=== PATIENT | female | born 1995 | race Caucasian/White ===

== ENCOUNTER → 2022-06-10 11:05 | Outpatient (CLI) | payer OTHER, SELFPAY ==
--- NOTE | 2022-06-10 | DI.US.S_ITS ---
PROCEDURE: US OB >= 14 WEEKS FETUS INDICATIONS: 20 WEEK ANATOMY SCAN OUTSIDE/PRIOR DATING DATA: Last menstrual period (LMP): 01/21/2022 LMP-based estimated date of delivery (CHERYL): 10/28/2022 First dating scan (date and location): 06/10/2022 Estimated date of delivery (CHERYL) from first dating scan: 10/29/2022 TECHNIQUE: Real-time scanning was performed of the fetus, with image documentation and biometric measurements. Endovaginal scanning: Not performed COMPARISON: None. FINDINGS: General: A single living intrauterine gestation is present. Presentation: Breech Placenta: Anterior, without previa. The cord insertion is about 2-3 centimeters from the edge. Amniotic fluid index: 12.6 centimeters heart rate: 135 beats per minute Maternal cervical canal: 3.6 centimeters biometrics: Biparietal diameter: 4.6 centimeters Head circumference: 17.1 centimeters Abdominal circumference: 15 centimeters Femur length: 3.1 centimeters Composite gestational age from present scan: 19 weeks and 6 days Estimated weight and percentile: 318 grams, 38th percentile Anatomic survey: Neuro: Ventricles are non-dilated at less than 10 mm. Cisterna magna is normal at 3-11 mm. Cerebellum is normal in size and morphology. Nuchal skin fold: Normal at less than 6 mm between 14-21 weeks gestational age. Face: Nose and lips, facial profile are normal. Spine: Skin line not well seen Heart: 4-chambered heart is present, with normal ventricular outflow tracts. Diaphragm: Diaphragm is intact. Stomach: Left-sided stomach is present. Kidneys: No definite hydronephrosis, not well seen Cord: Cord insertions is about 2-3 centimeters from the edge of the placenta. Bladder: Normal in size. Extremities: All 4 extremities identified. Feet are not well seen. IMPRESSION: Living intrauterine gestation at 19 weeks and 6 days, with concordant biometry today. EFW at the 38th percentile. Placental cord insertion is approximately 2-3 centimeters from the edge. Kidneys are not well seen. Feet are not well seen. Skin line of the spine is suboptimally seen. These could be followed on subsequent imaging. We strive to produce accurate, complete, and clear reports of imaging services. To assist us in improving patient care, this report was composed using standard report templates and voice recognition software. Therefore, it may contain abnormal punctuation, insertions and/or omissions. Occasional wrong-word or sound-alike substitutions may occur. Though we review the report and make efforts to correct it, we do recommend that the report be read carefully in proper context to recognize any text inaccuracies. Dictated by: Ashish Neves M.D. on 06/10/2022 at 19:18 Approved by: Ashish Neves M.D. on 06/10/2022 at 19:24
== END ==
PROVIDERS: Referring Provider Nurse Practitioner Obstetrics & Gynecology; Visit Provider Nurse Practitioner Obstetrics & Gynecology
DX: Z34.92 Encounter for supervision of normal pregnancy, unspecified, second trimester (principal); Z3A.19 19 weeks gestation of pregnancy
CPT/HCPCS: 76811

== ENCOUNTER → 2022-06-21 15:56 | Outpatient (CLI) | payer OTHER, SELFPAY ==
--- NOTE | 2022-06-21 | DI.US.S_ITS ---
PROCEDURE: US OB FOLLOW UP INDICATIONS: FOLLOW UP ANATOMY OUTSIDE/PRIOR DATING DATA: Last menstrual period (LMP): 01/21/2022 LMP-based estimated date of delivery (CHERYL): 10/28/2022 First dating scan (date and location): 06/10/2022. Estimated date of delivery (CHERYL) from first dating scan: 10/29/2022 The calculations are made using the study generated CHERYL of 10/29/2022. TECHNIQUE: Real-time scanning was performed of the fetus, with image documentation. Endovaginal scanning: Not indicated COMPARISON: [facility], OB >= 14 WEEKS FETUS, 06/10/2022, 11:15. FINDINGS: A single living intrauterine gestation is present. Presentation: Vertex Placenta: Placental position is anterior, without previa. Amniotic fluid index: 15 cm, normal range is 5-24 cm. Single deepest vertical pocket is 4.4 cm. heart rate: 160 beats per minute. Maternal cervical canal: 4.0 cm long. Normal lower limit is 2.5 cm. Estimated gestational age from initial scan: 21 weeks, 3 days. spine, kidneys, placental cord insertion and bilateral feet are visualized and are within normal limits. IMPRESSION: 1. Single live intrauterine gestation with fetus in vertex presentation. heart rate is 160 beats per minute. Normal amount of amniotic fluid. 2. Normal placental cord insertion. Normal kidneys, bilateral feet and spine. Dictated by: Jerman Iyer M.D. on 06/21/2022 at 16:41 Approved by: Jerman Iyer M.D. on 06/21/2022 at 16:43
== END ==
PROVIDERS: Referring Provider Nurse Practitioner Obstetrics & Gynecology; Visit Provider Nurse Practitioner Obstetrics & Gynecology
DX: Z34.92 Encounter for supervision of normal pregnancy, unspecified, second trimester (principal); Z3A.22 22 weeks gestation of pregnancy
CPT/HCPCS: 76816

== ENCOUNTER → 2023-07-07 10:55 | Outpatient (CLI) | payer OTHER, SELFPAY ==
--- NOTE | 2023-07-07 10:57 | DI.RAD.S_ITS ---
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 COMPARISON: None. FINDINGS: Bones: No fractures or dislocations. No suspicious bony lesions. Soft tissues: No tibiotalar joint effusion. Achilles tendon appears normal. IMPRESSION: No evidence acute bony abnormality. Dictated by: Main Simpson M.D. on 07/07/2023 at 11:59 Approved by: Main Simpson M.D. on 07/07/2023 at 12:01
== END ==
PROVIDERS: Referring Provider Student in an Organized Health Care Education/Training Program; Visit Provider Student in an Organized Health Care Education/Training Program
DX: S93.601A Unspecified sprain of right foot, initial encounter (principal); M79.671 Pain in right foot; X58.XXXA Exposure to other specified factors, initial encounter
CPT/HCPCS: 73630

== ENCOUNTER → 2023-12-30 07:20 | Outpatient (CLI) | payer OTHER, SELFPAY | PROVIDERS: Visit Provider Physician Assistant Medical | DX: J03.90 Acute tonsillitis, unspecified (principal) | CPT/HCPCS: 87070 ==

== ENCOUNTER → 2024-10-31 09:16 | Outpatient (CLI) | payer OTHER, SELFPAY ==
[2024-10-31 10:13] LABS: Influenza A - CEPHEID Flu A POSITIVE (NEGATIVE); Influenza B - CEPHEID Flu B NEGATIVE (NEGATIVE); Respiratory Syncytial Virus Negative (Negative)
[2024-10-31 10:14] LABS: COVID-19 CEPHEID 4-PLEX PCR Negative (Negative)
== END ==
PROVIDERS: Referring Provider Physician Assistant; Visit Provider Physician Assistant
DX: J02.9 Acute pharyngitis, unspecified (principal); R05.1 Acute cough
CPT/HCPCS: 0241U; 87070

== ENCOUNTER 2025-04-21 19:00 | Emergency (ER) | payer OTHER, SELFPAY ==
[2025-04-21 19:11] VITALS: BP 133/86; PULSE 66; RESP 16; TEMP 36.6; O2SAT 98; BMI 27.3
--- NOTE | 2025-04-21 19:18 | DI.US.S_ITS ---
PROCEDURE: US OB <= 14 WEEKS FETUS INDICATIONS: Vaginal bleeding, 5 wks TECHNIQUE: Real-time scanning was performed of the fetus and maternal pelvic organs, with image documentation. Endovaginal scanning was also performed to better visualize the fetus and maternal ovaries. COMPARISON: None. FINDINGS: There is no visualized intra or extra uterine . The uterus measures 9.7 x 4.3 x 5.9 cm. Endometrial complex measures 12.1 mm. Right ovary measures 4.1 x 2.0 x 2.3 cm with a volume of 9.7 cc. Left ovary measures 2.2 x 3.2 x 1.8 cm with a volume 6.7 cc. IMPRESSION: No visualized intra or extra uterine . Recommend correlation with beta HCG levels. We strive to produce accurate, complete, and clear reports of imaging services. To assist us in improving patient care, this report was composed using standard report templates and voice recognition software. Therefore, it may contain abnormal punctuation, insertions and/or omissions. Occasional wrong-word or sound-alike substitutions may occur. Though we review the report and make efforts to correct it, we do recommend that the report be read carefully in proper context to recognize any text inaccuracies. Dictated by: Liudmila Matthews M.D. on 04/21/2025 at 20:58 Approved by: Liudmila Matthews M.D. on 04/21/2025 at 20:59
[2025-04-21 20:44] LABS: Add Manual Diff / Slide Review NO; Hematocrit 38.0 % (36-46); Hemoglobin 13.2 g/dL (12.0-16.0); Lymphocytes Absolute Auto 3200 /uL (1100-4500); Mean Corpuscular HGB Conc 34.8 % (30-36); Mean Corpuscular Hemoglobin 31.9 PG (26-34); Mean Corpuscular Volume 91.7 fL (80-100); Platelet Count 168 X10^3/uL (150-400)
[2025-04-21 20:46] LABS: Alanine Aminotransferase 18 IU/L (<35); Albumin 4.2 g/dL (3.5-5.0); Albumin Globulin Ratio 1.4 (1.0-2.8); Alkaline Phosphatase 53 U/L (38-126); Blood Urea Nitrogen 15 mg/dL (7-17); Calcium 8.9 mg/dL (8.4-10.2); Carbon Dioxide 27 mmol/L (22-32); Chloride 104 mmol/L (98-107); Estimated Glomerular Filt Rate > 60 mL/min (>60); Globulin 2.9 g/dL (1.7-4.1); Glucose 85 mg/dL (70-99); HEMOLYSIS < 15 (0-50); Potassium 3.5 mmol/L (3.4-5.1); Sodium 137 mmol/L (137-145); Total Protein 7.1 g/dL (6.3-8.2)
--- NOTE | 2025-04-21 20:56 | ED.FEMALEGU ---
HPI - Female Genitourinary General Chief complaint: Vaginal Bleeding Stated complaint: Abd pain, possible miscarriage Time Seen by Provider: 04/21/25 20:55 Source: patient, RN notes reviewed and old records reviewed Mode of arrival: Ambulatory Limitations: no limitations History of Present Illness HPI Narrative: 29-year-old female G3 P 2, proximally 5 weeks we will flat central. On 03/16/2025. Patient had home test recently. Complaint of vaginal bleeding starting last night and abdominal cramping. Patient noticed had some spotting after sexual activity last night. Had some larger clots throughout today and then some more stringy clots this evening states they have all been bright red. She was had some suprapubic cramping. No lightheadedness or passing out, no chest pain or shortness of breath. No nausea or vomiting. No issues with bowel movements or with urination. Patient believes she had RhoGAM shot with her prior . States had 2 prior successful deliveries. Has follow up for care in place with [facility] at the end of the month. States no daily medications besides . Denies prior surgeries. Reports allergy to amoxicillin causing a rash. Related Data Previous Rx's ?Medication ?Instructions ?Recorded azithromycin 250 mg tablet See Rx Instructions PO .COMPLEX #6 10/31/24 tabs benzonatate 200 mg capsule 200 mg PO TID PRN cough #30 caps 10/31/24 guaifenesin 1,200 mg tablet, 1,200 mg PO Q12H #30 tabs 10/31/24 extended release 12 hr Allergies Allergy/AdvReac Type Severity Reaction Status Date / Time amoxicillin Allergy Intermediate Rash Verified 04/21/25 19:11 Review of Systems Review of Systems ROS Unobtainable: All systems reviewed & are unremarkable except as noted in HPI and below Exam Narrative Exam Narrative: GENERAL: Alert and oriented x three, female in mild distress HEENT: Head normocephalic, atraumatic, EOMI, pupils reactive, face symmetric, moist mucous membranes NECK: Supple, full range of motion CARDIOVASCULAR: Regular rate and rhythm without murmurs, rubs or gallops. RESPIRATORY: Breath sounds equal bilaterally, no wheezes rales or rhonchi. ABDOMEN: Soft, nontender. Normoactive bowel sounds all 4 quadrants. No guarding or rebound, rigidity, no mass : No CVA tenderness EXTREMITIES: Normal range of motion, no clubbing or edema. Neurovascularly intact NEUROLOGICAL: Cranial nerves II through XII grossly intact. Moving all extremities SKIN: Warm, dry, no petechiae, no rashes or lesions. Initial Vital Signs Initial Vital Signs: Vital Signs Temperature 97.8 F 04/21/25 19:11 Pulse Rate 66 04/21/25 19:11 Respiratory Rate 16 04/21/25 19:11 Blood Pressure 133/86 04/21/25 19:11 Pulse Oximetry 98 04/21/25 19:11 Oxygen Delivery Method Room Air 04/21/25 19:11 Course Orders Ordered: ED Orders 04/21/25 19:18 US pelvic complete Stat 04/21/25 20:22 Complete Blood Count AUTO DIFF Stat Comprehensive Metabolic Panel Stat HCG Quantitative /Beta subunit Stat Type and Screen Stat Discontinued Medications Rho Immune Globulin (Rho(D) Immune Globulin 1,500 Unit Syringe) 1,500 unit IM NOW ONE Stop: 04/21/25 22:17 Last Admin: 04/21/25 22:40 Dose: 1,500 unit Documented By: SAVI Vital Signs Vital signs: Vital Signs - 8 hr 04/21/25 19:11 04/21/25 22:49 Temperature 97.8 F Pulse Rate 66 59 L Respiratory Rate 16 17 Blood Pressure 133/86 116/76 Pulse Oximetry 98 100 Oxygen Delivery Method Room Air Room Air MDM - Female Genitourinary Lab Data 04/21/25 20:22 04/21/25 20:22 Labs: Lab Results 04/21/25 Range/Units 20:22 WBC 10.2 (4.5-11.0) X10^3/uL RBC 4.14 (4.0-5.2) X10^6/uL Hgb 13.2 (12.0-16.0) g/dL Hct 38.0 (36-46) % MCV 91.7 (80-100) fL MCH 31.9 (26-34) PG MCHC 34.8 (30-36) % RDW 12.1 (11.6-14.8) % Plt Count 168 (150-400) X10^3/uL Neut % (Auto) 55.9 (50-75) % Lymph % (Auto) 31.2 (25-40) % Gillespie % (Auto) 8.2 (3-14) % Eos % (Auto) 3.9 (2-4) % Baso % (Auto) 0.8 (0-2) % Neut # (Auto) 5700 (1924-1485) /uL Lymph # (Auto) 3200 (7681-8460) /uL Gillespie # (Auto) 800 (0-900) /uL Eos # (Auto) 400 (0-450) /uL Baso # (Auto) 100 (0-100) /uL Sodium 137 (137-145) mmol/L Potassium 3.5 (3.4-5.1) mmol/L Chloride 104 (98-107) mmol/L Carbon Dioxide 27 (22-32) mmol/L BUN 15 (7-17) mg/dL Creatinine 1.04 (0.52-1.04) mg/dL Estimated GFR > 60 (>60) mL/min BUN/Creatinine Ratio 14.4 (6-22) Glucose 85 (70-99) mg/dL Calcium 8.9 (8.4-10.2) mg/dL Total Bilirubin 0.4 (0.2-1.3) mg/dL AST 24 (14-36) IU/L ALT 18 (<35) IU/L Alkaline Phosphatase 53 (38-126) U/L Total Protein 7.1 (6.3-8.2) g/dL Albumin 4.2 (3.5-5.0) g/dL Globulin 2.9 (1.7-4.1) g/dL Albumin/Globulin Ratio 1.4 (1.0-2.8) HCG, Quant 11.39 mIU/mL Blood Type O Positive Antibody Screen Negative Urine Dip Bedside Urine Glucose Negative Bedside Urine Bilirubin - Negative Bedside Urine Ketone - Negative Urine Specific [place] 1.005 Bedside Urine Occult Blood +++ Bedside Urine pH 6.0 Bedside Urine Protein - Negative Bedside Urine Urobilinogen - Negative Bedside Urine Nitrite - Negative Bedside Urine Leukocytes - Negative Esterase MDM Narrative Medical decision making narrative: Labs show normal white count, hemoglobin and platelets, electrolytes BUN creatinine are normal LFTs are negative hCG quant 11.39 Patient O positive, negative antibody screen. She notes she had RhoGAM after prior delivery. Pelvic/Ob ultrasound shows no visualized intra or extra uterine recommend correlation with beta hCG levels. Uterus is 9.7 x 4.3 x 5.9 cm endometrial complex measures 12.1 mm right ovary measures 4.1 x 2 x 2.3 with a volume of 9.7 cc left ovary measures 2.2 x 3.2 x 1.8 cm with a volume of 6.7 cc. Patient is hCG is 11.39 has noticed bleeding for the past 24 hours. Noted positive test at and last menstrual period was 03/16/2025 so possibility of complete miscarriage as hCG is 11.39 would have her follow up for repeat hCG. Reviewed findings with the patient. Patient did receive RhoGAM today. We will have her follow up for recheck of her HCG has follow up through [facility] but also given local follow up. Discussed return precautions all questions answered. Discharge Plan Departure Patient Disposition: Home Clinical Impression: Miscarriage Instructions: DI for Miscarriage Activity Restrictions/Additional Instructions: I suspect you have had a miscarriage, your hCG level today is 11.39. Follow up with your providers to have this rechecked to make sure that it goes completely to 0. On your ultrasound today there are no changes to the ovaries and no changes with in the pelvis or signs of current within the uterus. You can take acetaminophen and/or Tylenol as needed for pain. Return if you develop fevers, rapidly worsening pain, rapidly worsening bleeding, going through a pad or tampon more than an hour or other new or concerning changes. Prescriptions: No Action benzonatate 200 mg capsule 200 mg PO TID PRN (Reason: cough) Qty: 30 0RF guaifenesin 1,200 mg tablet extended release 12hr 1,200 mg PO Q12H Qty: 30 0RF azithromycin 250 mg tablet See Rx Instructions PO .COMPLEX Qty: 6 0RF Rx Instructions: For 250 mg dose pack: take 500 mg today (day 1), then 250 mg for 4 days (days 2-5) PO Referrals: Miscellaneous,Doctor[facility] [Primary Care Provider, Medical] Evelyn Reyes MD [Physician, STOREKEEPER HELPER] Stand Alone Forms: Patient Portal/API
[2025-04-21 21:03] LABS: HCG Quantitative /Beta subunit 11.39 mIU/mL
[2025-04-21] MEDS: RHO(D) IMMUNE GLOBULIN 1,500 UNIT SYRINGE 1500 UNIT IM (22:40)
[2025-04-21 22:49] VITALS: BP 116/76; PULSE 59; RESP 17; O2SAT 100
== END 2025-04-21 22:51 | disposition home or self-care (01) ==
PROVIDERS: Emergency Provider Emergency Medicine
DX: O03.9 Complete or unspecified spontaneous abortion without complication (principal); Z3A.01 Less than 8 weeks gestation of pregnancy
CPT/HCPCS: 76830; 76856; 80053; 81003; 84702; 85025; 86850; 86900; 86901; 96372; 99283; 99284; J2790